=== PATIENT | female | born 1990 | race Caucasian/White ===

== ENCOUNTER 2017-04-18 15:32 | Emergency (ER) | payer OTHER ==
[2017-04-18 17:12] VITALS: BP 109/64
--- NOTE | 2017-04-18 18:11 | EDM.PDOC ---
[id number] Complaint: TWISTED LT ANKLE Time Seen by Provider: 04/18/17 18:00 Source of Information: Reports: Patient, Family History Limitations: Reports: No Limitations - History of Present Illness INITIAL COMMENTS - FREE TEXT/NARRATIVE: 26-year-old female turned her left ankle earlier today in his pain over the lateral ankle, swelling, and pain with weightbearing. No other injury. Onset: Today Duration: Hour(s): (A few hours ago) Location: Reports: Lower Extremity, Left Worsens with: Reports: Other (Weightbearing) Associated Symptoms: Reports: No Other Symptoms Left Ankle Pain Score (Numeric/FACES): 2 - Related Data Allergies Allergy/AdvReac Type Severity Reaction Status Date / Time cefaclor [From Ceclor] Allergy Hives Verified 04/18/17 17:14 Home Meds: Home Meds Ondansetron [Zofran] 4 mg PO Q6H PRN 04/18/17 [History] Ranitidine HCl [Zantac 75] 75 mg PO DAILY 04/18/17 [History] Past Medical History Gastrointestinal History: Reports: Irritable Bowel Syndrome Musculoskeletal History: Reports: Other (See Below) Other Musculoskeletal History: fell C/o L ankle pain Neurological History: Reports: Other (See Below) Other Neuro History: rosalie Dermatologic History: Reports: Other (See Below) Other Dermatologic History: no sweeling noted on L ankle mother states she applied ice prior ER Social & Family History - Tobacco Use Smoking Status *Q: Never Smoker - Caffeine Use Caffeine Use: Reports: None Review of Systems - Review of Systems Review Of Systems: See Below Constitutional: Denies: Fever Respiratory: Denies: Shortness of Breath GI/Abdominal: Denies: Nausea, Vomiting Skin: Denies: Bruising Neurological: Denies: Paresthesia ED EXAM, GENERAL - Physical Exam Exam: See Below Exam Limited By: No Limitations General Appearance: Alert, No Apparent Distress Respiratory/Chest: No Respiratory Distress Extremities: Other (Exam is otherwise limited to the lower extremities. She has tenderness to palpation over the distal fibula with edema and swelling over the talofibular ligament. Medial malleolus is nontender.) Course - Vital Signs Last Recorded V/S: Last Vital Signs Temp 98.1 F 04/18/17 17:11 Pulse 90 04/18/17 17:11 Resp 18 04/18/17 17:11 BP 109/64 04/18/17 17:11 Pulse Ox - Orders/Labs/Meds Orders: Active Orders 24 hr Category Date Time Status Ankle Min 3V Lt [CR] Stat Exams 04/18/17 18:01 Taken - Re-Assessments/Exams Free Text/Narrative Re-Assessment/Exam: 04/18/17 18:11 A left ankle x-ray was obtained. 04/18/17 18:28 x-ray is negative for fracture. A three-inch Raheem wrap was applied and the patient has crutches at home. She should increase activity as tolerated. Departure - Departure Time of Disposition: 18:40 Disposition: Home, Self-Care 01 Condition: Good Clinical Impression: Ankle sprain - Discharge Information Instructions: Ankle Sprain, [id number] Referrals: Krystina Pinon MD [Primary Care Provider] - Forms: ED Department Discharge Care Plan Goals: Use crutches if needed the next several days and increase activity as tolerated. Wrapping, ibuprofen or naproxen and elevation may help. Recheck in 3- 4 days if not improving satisfactorily. - My Orders Last 24 Hours: My Active Orders 04/18/17 18:01 Ankle Min 3V Lt [CR] Stat - Assessment/Plan Last 24 Hours: My Active Orders 04/18/17 18:01 Ankle Min 3V Lt [CR] Stat
--- NOTE | 2017-04-19 11:33 | CR ---
Left ankle There is normal alignment. There is no evidence for fracture. There is lateral soft tissue swelling. Impression: 1. Lateral soft tissue swelling without fracture.
== END 2017-04-18 18:40 | disposition home or self-care (01) ==
LOC: JP.ED 15:32
DX: S93.402A Sprain of unspecified ligament of left ankle, initial encounter (principal); Z79.899 Other long term (current) drug therapy; Z88.8 Allergy status to other drugs, medicaments and biological substances; X50.9XXA Other and unspecified overexertion or strenuous movements or postures, initial encounter
CPT/HCPCS: 73610-26-LT; 73610-LT; 99284